=== PATIENT | male | born 1940 | race Native Hawaiian/Other Pacific Islander ===

== ENCOUNTER 2017-09-14 07:53 | Day surgery (SDC) | payer OTHER ==
[~2017-09-14 07:53] MED LIST: ALPHAGAN P0.1 % OP; ASPIRIN LOW STR81 MG PO; CARDURA4 MG PO; DUTA0.5C PO; GABA300C2 PO; GLIP10TA55 PO; HYDROCHLOROT12.5 M1 PO; INSU100I2 SC; METF100038 PO; PRAVACHOL20 MG PO; PRECOSE25 MG PO; RAMI2.5C2 PO; SINGULAIR10 MG PO
[2017-09-14 08:17] LABS: PLATELET COUNT 181 K/uL (142-355)
[2017-09-14 08:35] LABS: POTASSIUM 3.4 mmol/L (3.6-5.2); SODIUM 136 mmol/L (136-145)
== END 2017-09-14 10:50 | disposition home or self-care (01) ==
LOC: OR 07:53
PROVIDERS: Student in an Organized Health Care Education/Training Program
PROC: 0DJD8ZZ Inspection of Lower Intestinal Tract, Via Natural or Artificial Opening Endoscopic (ICD-10-PCS; principal; 2017-09-14)
DX: K57.30 Diverticulosis of large intestine without perforation or abscess without bleeding (principal); K64.8 Other hemorrhoids; Z12.11 Encounter for screening for malignant neoplasm of colon
CPT/HCPCS: 80053; 85027; J2001; J2250; J2704; J3010

== ENCOUNTER 2019-11-15 18:22 | Emergency (ER) | payer OTHER ==
[~2019-11-15] VITALS: Ht 167.6 cm; Wt 96.2 kg
[2019-11-15 19:14] LABS: PLATELET COUNT 143 K/uL (142-355)
[2019-11-15 19:23] LABS: POTASSIUM 3.2 mmol/L (3.6-5.2)
[2019-11-15 21:06] VITALS: BP 124/86; TEMP 98.3
== END 2019-11-15 21:06 | disposition home or self-care (01) ==
LOC: ED 18:22
PROVIDERS: Emergency Medicine
DX: J10.1 Influenza due to other identified influenza virus with other respiratory manifestations (principal)
CPT/HCPCS: 36415; 80053; 81000; 81002; 85027; 87502; 93005; 96360; 99284; J2405

== ENCOUNTER 2020-07-08 18:52 | Inpatient (IN) | payer OTHER ==
[~2020-07-08] VITALS: Ht 167.6 cm; Wt 93.1 kg
[2020-07-08 20:00] VITALS: BP 80/40; TEMP 98.4
[2020-07-08 21:00] VITALS: BP 73/37
[2020-07-08 21:10] LABS: POTASSIUM 5.4 mmol/L (3.6-5.2)
[2020-07-08 21:25] LABS: PLATELET COUNT 194 K/uL (142-355)
[2020-07-08 22:00] VITALS: BP 76/40
[2020-07-08 23:00] VITALS: BP 73/42
[2020-07-08 23:38] VITALS: BP 68/40; TEMP 98.4; BMI 29.2
[2020-07-09] VITALS (29 sets, daily range): BP systolic 74–118; BP diastolic 35–78; TEMP 97.7–98.9; Ht 167.6 cm; Wt 93.1 kg
[2020-07-09] MEDS ORDERED: CARDURA8 MG PO (02:44)
[2020-07-09 07:06] LABS: PLATELET COUNT 169 K/uL (142-355)
[2020-07-09] MEDS ORDERED: GABA300C2 PO (07:34)
[2020-07-09] MEDS ORDERED: FINASTERIDE5 MG PO (07:36)
[2020-07-09] MEDS ORDERED: METFORMIN ER1000 MG PO (07:36)
[2020-07-09] MEDS ORDERED: TRULICITY0.75 MG/0. SC (07:37)
[2020-07-09] MEDS ORDERED: FLONASE AL50 MCG/ACT NAS (07:41)
[2020-07-09] MEDS ORDERED: FLOVENT HF220 MCG/AC PO (07:43)
[2020-07-09 07:48] LABS: POTASSIUM 3.7 mmol/L (3.6-5.2)
[2020-07-09 13:17] LABS: POTASSIUM 3.6 mmol/L (3.6-5.2)
[2020-07-10] VITALS (23 sets, daily range): BP systolic 69–148; BP diastolic 31–81; TEMP 97.7–99
[2020-07-10 07:16] LABS: PLATELET COUNT 171 K/uL (142-355)
[2020-07-10 07:44] LABS: POTASSIUM 3.3 mmol/L (3.6-5.2)
[2020-07-10] MEDS ORDERED: METF500T PO (11:34)
[2020-07-10] MEDS ORDERED: METFTAB PO (11:35)
[2020-07-11] VITALS (18 sets, daily range): BP systolic 116–162; BP diastolic 61–95; TEMP 97.5–99.2
[2020-07-11 08:32] LABS: PLATELET COUNT 178 K/uL (142-355)
[2020-07-11 08:46] LABS: POTASSIUM 3.7 mmol/L (3.6-5.2)
[2020-07-12 02:00] VITALS: BP 148/70
[2020-07-12 04:00] VITALS: BP 143/84; TEMP 98.3
[2020-07-12 05:37] LABS: PLATELET COUNT 146 K/uL (142-355)
[2020-07-12 06:18] LABS: POTASSIUM 4.5 mmol/L (3.6-5.2)
[2020-07-12 07:00] VITALS: BP 134/79; TEMP 97.3
[2020-07-12 08:00] VITALS: BP 131/85
[2020-07-12 12:00] VITALS: BP 126/88; TEMP 97.5
== END 2020-07-12 16:10 | disposition home or self-care (01) | DRG 177 ==
LOC: MED/SURG 18:52 → ICU 07-09 00:36
PROVIDERS: ADMIT Family Medicine
DX: U07.1 COVID-19 (principal); A41.89 Other specified sepsis; N13.8 Other obstructive and reflux uropathy; N17.8 Other acute kidney failure; E46 Unspecified protein-calorie malnutrition; E11.9 Type 2 diabetes mellitus without complications; I95.89 Other hypotension; N40.1 Benign prostatic hyperplasia with lower urinary tract symptoms; G30.8 Other Alzheimer's disease; F02.80 Dementia in other diseases classified elsewhere, unspecified severity, without behavioral disturbance, psychotic disturbance, mood disturbance, and anxiety; E86.0 Dehydration; R11.2 Nausea with vomiting, unspecified; A08.8 Other specified intestinal infections; I10 Essential (primary) hypertension; F28 Other psychotic disorder not due to a substance or known physiological condition; D64.89 Other specified anemias
CPT/HCPCS: 36415; 36600; 80048; 80053; 81000; 82150; 82728; 82805; 82947; 83605; 83690; 83735; 84100; 85027; 85379; 86140; 87040; 87635; J0456; J1100; J1200; J1630; J1650; J1815; J1885; J2060; J2765; J3475; J3480; U0003

== ENCOUNTER 2020-07-18 09:10 | Inpatient (IN) | payer OTHER ==
[~2020-07-18] VITALS: Ht 167.6 cm; Wt 95.5 kg
[~2020-07-18 09:10] MED LIST changes: +CARDURA8 MG PO; +FINASTERIDE5 MG PO; +FLONASE AL50 MCG/ACT NAS; +FLOVENT HF220 MCG/AC PO; +METF500T PO; +METFORMIN ER1000 MG PO; +METFTAB PO; +TRULICITY0.75 MG/0. SC
[2020-07-18 10:08] LABS: PLATELET COUNT 155 K/uL (142-355)
[2020-07-18 10:28] LABS: POTASSIUM 6.2 mmol/L (3.6-5.2)
[2020-07-18 12:18] VITALS: BP 68/34; TEMP 97.9; Ht 167.6 cm; Wt 95.5 kg
[2020-07-18 16:00] VITALS: BP 83/43; TEMP 97.9
[2020-07-18 20:00] VITALS: BP 132/73; TEMP 97.1
[2020-07-19] VITALS: BP 100/46; TEMP 97.7
[2020-07-19 04:03] VITALS: BP 100/78; BP 86/48; TEMP 98.1
[2020-07-19 04:35] LABS: PLATELET COUNT 188 K/uL (142-355)
[2020-07-19 04:52] LABS: POTASSIUM 3.9 mmol/L (3.6-5.2)
[2020-07-19 08:00] VITALS: BP 106/48; TEMP 98
[2020-07-19 12:00] VITALS: BP 160/92; TEMP 97.7
[2020-07-19 16:00] VITALS: BP 90/46; TEMP 97.7
[2020-07-19 20:11] VITALS: BP 111/57; TEMP 97.7
[2020-07-20] VITALS (7 sets, daily range): BP systolic 92–150; BP diastolic 54–82; TEMP 97.7–98.6
[2020-07-20 06:25] LABS: PLATELET COUNT 226 K/uL (142-355)
[2020-07-20 06:47] LABS: POTASSIUM 3.7 mmol/L (3.6-5.2)
[2020-07-21 04:00] VITALS: BP 152/88; TEMP 98.1
[2020-07-21 06:23] LABS: PLATELET COUNT 186 K/uL (142-355)
[2020-07-21 06:46] LABS: POTASSIUM 4.1 mmol/L (3.6-5.2)
[2020-07-21 08:00] VITALS: BP 168/89; TEMP 98.1
[2020-07-21 12:00] VITALS: BP 142/75; TEMP 97.7
[2020-07-21 16:00] VITALS: BP 151/84; TEMP 97.9
[2020-07-21 20:00] VITALS: BP 152/89; TEMP 97.9
[2020-07-22] VITALS: BP 123/73; TEMP 98.5
[2020-07-22 04:00] VITALS: BP 131/76; TEMP 98.4
[2020-07-22 05:41] LABS: PLATELET COUNT 163 K/uL (142-355)
[2020-07-22 05:57] LABS: POTASSIUM 3.7 mmol/L (3.6-5.2)
[2020-07-22 08:00] VITALS: BP 141/80; TEMP 98.1
[2020-07-22 12:00] VITALS: BP 147/73; TEMP 98
[2020-07-22 16:00] VITALS: BP 145/75; TEMP 98
[2020-07-22 20:00] VITALS: BP 165/92; TEMP 98.6
[2020-07-23 00:16] VITALS: BP 157/52; TEMP 98.3
[2020-07-23 03:59] LABS: PLATELET COUNT 164 K/uL (142-355)
[2020-07-23 04:09] VITALS: BP 137/71; TEMP 98.3
[2020-07-23 05:04] LABS: POTASSIUM 3.9 mmol/L (3.6-5.2)
[2020-07-23 08:00] VITALS: BP 189/100; TEMP 97.8
[2020-07-23 12:00] VITALS: BP 150/68; TEMP 98.4
[2020-07-23 16:00] VITALS: BP 191/111; TEMP 97.7
[2020-07-23 20:00] VITALS: BP 150/70; TEMP 98.3
[2020-07-24] VITALS: BP 136/77; TEMP 98.6
[2020-07-24 04:00] VITALS: BP 141/76; TEMP 98.8
[2020-07-24 08:00] VITALS: BP 145/80; TEMP 98.4
[2020-07-24 11:30] LABS: PLATELET COUNT 167 K/uL (142-355)
[2020-07-24 12:00] VITALS: BP 151/80; TEMP 98.8
[2020-07-24 16:00] VITALS: BP 143/91; TEMP 98.2
[2020-07-24 20:00] VITALS: BP 132/76; TEMP 98.1
[2020-07-25] VITALS: BP 151/74; TEMP 98.1
[2020-07-25 04:00] VITALS: BP 155/78; TEMP 98.5
[2020-07-25 05:47] LABS: POTASSIUM 4.1 mmol/L (3.6-5.2)
[2020-07-25 06:44] LABS: PLATELET COUNT 211 K/uL (142-355)
[2020-07-25 08:00] VITALS: BP 135/81; TEMP 98.6
[2020-07-25 12:00] VITALS: BP 146/90; TEMP 99
[2020-07-25 16:00] VITALS: BP 163/94; TEMP 99
[2020-07-25 20:00] VITALS: BP 173/96; TEMP 98.2
[2020-07-26] VITALS: BP 163/91; TEMP 98.4
[2020-07-26 04:00] VITALS: BP 158/82; TEMP 98.6
[2020-07-26 05:01] LABS: PLATELET COUNT 207 K/uL (142-355)
[2020-07-26 05:06] LABS: POTASSIUM 4.4 mmol/L (3.6-5.2)
[2020-07-26 08:00] VITALS: BP 151/83; TEMP 98.3
[2020-07-26 12:00] VITALS: BP 165/95; TEMP 97.7
[2020-07-26 16:00] VITALS: BP 173/91; TEMP 98.1
[2020-07-26 19:42] VITALS: BP 162/91; TEMP 98.3
[2020-07-27] VITALS (7 sets, daily range): BP systolic 130–170; BP diastolic 68–96; TEMP 98.3–98.8
[2020-07-27 11:52] LABS: PLATELET COUNT 85 K/uL (142-355)
[2020-07-27 12:20] LABS: POTASSIUM 4.1 mmol/L (3.6-5.2)
[2020-07-28 04:00] VITALS: BP 148/80; TEMP 98.5
[2020-07-28 08:00] VITALS: BP 147/87; TEMP 98.1
[2020-07-28 12:00] VITALS: BP 174/96; TEMP 98.2
[2020-07-28 16:00] VITALS: BP 160/90; TEMP 98.3
[2020-07-28 20:17] VITALS: BP 160/79; TEMP 98.5
[2020-07-29] VITALS: BP 166/83; TEMP 98.3
[2020-07-29 04:13] VITALS: BP 161/98; TEMP 98.6
[2020-07-29 05:23] LABS: PLATELET COUNT 220 K/uL (142-355)
[2020-07-29 08:00] VITALS: BP 160/82; TEMP 98.5
[2020-07-29 12:00] VITALS: BP 137/91; TEMP 98.1
== END 2020-07-29 13:50 | disposition home or self-care (01) | DRG 177 ==
LOC: MED/SURG 09:10
PROVIDERS: ADMIT Family Medicine
DX: U07.1 COVID-19 (principal); J18.8 Other pneumonia, unspecified organism; A41.89 Other specified sepsis; E11.10 Type 2 diabetes mellitus with ketoacidosis without coma; E87.1 Hypo-osmolality and hyponatremia; E46 Unspecified protein-calorie malnutrition; J45.901 Unspecified asthma with (acute) exacerbation; N13.8 Other obstructive and reflux uropathy; I95.89 Other hypotension; I10 Essential (primary) hypertension; J45.998 Other asthma; R53.81 Other malaise; G30.8 Other Alzheimer's disease; F02.80 Dementia in other diseases classified elsewhere, unspecified severity, without behavioral disturbance, psychotic disturbance, mood disturbance, and anxiety; D64.89 Other specified anemias; N40.1 Benign prostatic hyperplasia with lower urinary tract symptoms; N28.9 Disorder of kidney and ureter, unspecified
CPT/HCPCS: 36415; 36600; 80053; 82728; 82805; 82947; 83605; 83735; 83880; 84100; 85027; 85379; 86140; 86769; 87040; 87635; 94667; 94668; 94760; J0456; J1450; J1815; J1940; J3475; J3480; J7060; U0003

== ENCOUNTER 2020-08-18 18:08 | Emergency (ER) | payer OTHER ==
[~2020-08-18] VITALS: Ht 33 cm; Wt 0.5 kg
[2020-08-18 18:08] VITALS: BP 104/52; TEMP 97.9
[2020-08-18 19:28] LABS: PLATELET COUNT 249 K/uL (142-355)
[2020-08-18 19:29] LABS: POTASSIUM 5.2 mmol/L (3.6-5.2)
== END 2020-08-18 23:40 | disposition short-term general hospital (02) ==
LOC: ED 18:08
PROVIDERS: Emergency Medicine Emergency Medical Services
PROC: 0T9B70Z Drainage of Bladder with Drainage Device, Via Natural or Artificial Opening (ICD-10-PCS; principal; 2020-08-18)
DX: E11.10 Type 2 diabetes mellitus with ketoacidosis without coma (principal); Z79.84 Long term (current) use of oral hypoglycemic drugs; I95.89 Other hypotension
CPT/HCPCS: 36415; 36600; 51702; 80053; 81002; 82805; 82947; 82962; 83605; 83690; 84484; 85027; 85610; 85730; 87040; 93005; 96361; 96365; 96366; 96375; 96376; 99285; J0696; J1644; J1815; J2405; J3490

== ENCOUNTER 2020-09-01 20:45 | Emergency (ER) | payer OTHER ==
[~2020-09-01] VITALS: Ht 167.6 cm; Wt 70.3 kg
[2020-09-01 20:58] VITALS: TEMP 98.7
[2020-09-01 21:22] LABS: PLATELET COUNT 177 K/uL (142-355)
[2020-09-01 21:30] LABS: POTASSIUM 4.3 mmol/L (3.6-5.2); SODIUM 133 mmol/L (136-145)
[2020-09-01 21:39] LABS: PARTIAL THROMBOPLASTIN TIME 35.3 SECONDS (24.5-33.6)
[2020-09-02 00:45] VITALS: BP 99/55
== END 2020-09-02 00:45 | disposition short-term general hospital (02) ==
LOC: ED 20:45
PROVIDERS: Hospitalist
PROC: 0T9B70Z Drainage of Bladder with Drainage Device, Via Natural or Artificial Opening (ICD-10-PCS; principal; 2020-09-01)
DX: N28.89 Other specified disorders of kidney and ureter (principal); R31.9 Hematuria, unspecified
CPT/HCPCS: 36415; 51702; 80053; 80320; 81000; 82550; 83605; 83880; 84484; 85027; 85610; 85730; 87040; 87088; 93005; 96360; 96361; 96365; 96366; 99285; J0692; J1956; Q9963

== ENCOUNTER 2020-10-05 15:53 | Outpatient (CLI) | payer OTHER ==
[2020-10-05 16:08] LABS: PLATELET COUNT 195 K/uL (142-355)
== END 2020-10-05 22:25 | disposition home or self-care (01) ==
LOC: LAB 15:53
PROVIDERS: ATTEND Family Medicine
DX: E86.0 Dehydration (principal); N19 Unspecified kidney failure
CPT/HCPCS: 80053; 81000; 83735; 84100; 85027

== ENCOUNTER 2020-10-12 22:54 | Emergency (ER) | payer OTHER ==
[~2020-10-12] VITALS: Ht 167.6 cm; Wt 70.3 kg
[2020-10-12 23:55] LABS: POTASSIUM 4.5 mmol/L (3.6-5.2); SODIUM 133 mmol/L (136-145)
[2020-10-13 00:10] LABS: PLATELET COUNT 182 K/uL (142-355)
[2020-10-13 00:17] LABS: PARTIAL THROMBOPLASTIN TIME 25.6 SECONDS (24.5-33.6)
[2020-10-13 02:30] VITALS: BP 107/67; TEMP 98.1
== END 2020-10-13 02:30 | disposition short-term general hospital (02) ==
LOC: ED 22:54
PROVIDERS: Hospitalist
DX: A41.9 Sepsis, unspecified organism (principal); E86.0 Dehydration; R31.9 Hematuria, unspecified; D64.89 Other specified anemias; Z98.890 Other specified postprocedural states; R06.02 Shortness of breath; Z20.828 Contact with and (suspected) exposure to other viral communicable diseases
CPT/HCPCS: 36415; 80053; 81000; 81002; 82550; 83605; 83880; 84484; 85027; 85610; 85730; 87040; 87077; 87185; 87186; 87205; 87635; 93005; 96360; 96365; 96366; 99285; J1956; U0003

== ENCOUNTER 2020-11-07 07:28 | Day surgery (SDC) | payer OTHER ==
[~2020-11-07] VITALS: Ht 33 cm; Wt 0.5 kg
[2020-11-07 08:25] LABS: PLATELET COUNT 207 K/uL (142-355)
[2020-11-07 08:27] LABS: POTASSIUM 5.7 mmol/L (3.6-5.2)
== END 2020-11-07 11:17 | disposition home or self-care (01) ==
LOC: OR 07:28
PROVIDERS: ATTEND Student in an Organized Health Care Education/Training Program
PROC: 0DH63UZ Insertion of Feeding Device into Stomach, Percutaneous Approach (ICD-10-PCS; principal; 2020-11-07)
DX: R62.7 Adult failure to thrive (principal); E11.43 Type 2 diabetes mellitus with diabetic autonomic (poly)neuropathy; K31.84 Gastroparesis; E46 Unspecified protein-calorie malnutrition
CPT/HCPCS: 80053; 85027; J2001; J2370; J2704; J3490

== ENCOUNTER 2020-11-28 13:11 | Inpatient (IN) | payer OTHER ==
[~2020-11-28] VITALS: Ht 167.6 cm; Wt 81.9 kg
[2020-11-28 13:12] VITALS: BP 90/71; TEMP 97.4
[2020-11-28 14:06] LABS: PLATELET COUNT 252 K/uL (142-355)
[2020-11-28 14:14] LABS: POTASSIUM 5.4 mmol/L (3.6-5.2)
[2020-11-28 15:00] VITALS: BP 101/56
[2020-11-28 16:00] VITALS: BP 121/53
[2020-11-28 17:18] VITALS: BP 94/56; TEMP 97.9; Ht 167.6 cm; Wt 81.9 kg
[2020-11-28 19:46] VITALS: BP 104/65; TEMP 98.2
[2020-11-28 20:06] LABS: POTASSIUM 5.5 mmol/L (3.6-5.2)
[2020-11-28 23:47] VITALS: BP 108/41; TEMP 98
[2020-11-29 03:37] VITALS: BP 79/49; TEMP 98.6
[2020-11-29 05:19] LABS: PLATELET COUNT 237 K/uL (142-355)
[2020-11-29 05:23] LABS: POTASSIUM 5.7 mmol/L (3.6-5.2)
[2020-11-29 08:00] VITALS: BP 112/63; TEMP 98.8
[2020-11-29 12:00] VITALS: BP 129/57; TEMP 98.1
[2020-11-29 16:00] VITALS: BP 113/75; TEMP 97.8
[2020-11-29 20:00] VITALS: BP 105/56; TEMP 98.2
[2020-11-30] VITALS (7 sets, daily range): BP systolic 98–116; BP diastolic 58–70; TEMP 97.3–98.7
[2020-11-30 05:55] LABS: PLATELET COUNT 200 K/uL (142-355)
[2020-11-30 06:27] LABS: POTASSIUM 5.3 mmol/L (3.6-5.2)
[2020-12-01 04:00] VITALS: BP 90/48; TEMP 98.1
[2020-12-01 05:23] LABS: PLATELET COUNT 190 K/uL (142-355)
[2020-12-01 05:41] LABS: POTASSIUM 4.1 mmol/L (3.6-5.2)
[2020-12-01 08:00] VITALS: BP 116/63; TEMP 98.3
[2020-12-01 12:00] VITALS: BP 110/62; TEMP 97.8
[2020-12-01 16:00] VITALS: BP 108/54; TEMP 98.5
[2020-12-01 20:00] VITALS: BP 99/71; TEMP 98.2
[2020-12-02 00:02] VITALS: BP 126/65; TEMP 97.9
[2020-12-02 04:14] VITALS: BP 125/73; TEMP 97.7
[2020-12-02 06:52] LABS: PLATELET COUNT 176 K/uL (142-355)
[2020-12-02 07:18] LABS: POTASSIUM 4.6 mmol/L (3.6-5.2)
[2020-12-02 08:00] VITALS: BP 98/65; TEMP 97.8
[2020-12-02 12:00] VITALS: BP 144/61; TEMP 98.7
== END 2020-12-02 16:55 | disposition home health service (06) | DRG 871 ==
LOC: ED 13:11 → MED/SURG 15:21
PROVIDERS: Emergency Medicine Emergency Medical Services; ADMIT Family Medicine; ATTEND Family Medicine
DX: A41.89 Other specified sepsis (principal); R65.21 Severe sepsis with septic shock; N39.0 Urinary tract infection, site not specified; E87.1 Hypo-osmolality and hyponatremia; N13.8 Other obstructive and reflux uropathy; N18.4 Chronic kidney disease, stage 4 (severe); E46 Unspecified protein-calorie malnutrition; N17.8 Other acute kidney failure; E86.0 Dehydration; R33.8 Other retention of urine; N40.1 Benign prostatic hyperplasia with lower urinary tract symptoms; F03.90 Unspecified dementia, unspecified severity, without behavioral disturbance, psychotic disturbance, mood disturbance, and anxiety; D53.9 Nutritional anemia, unspecified; R00.1 Bradycardia, unspecified; I95.89 Other hypotension; E11.22 Type 2 diabetes mellitus with diabetic chronic kidney disease; I12.9 Hypertensive chronic kidney disease with stage 1 through stage 4 chronic kidney disease, or unspecified chronic kidney disease; E87.5 Hyperkalemia
CPT/HCPCS: 36415; 51702; 80048; 80053; 81000; 83605; 83690; 83735; 83880; 84100; 85027; 86140; 87040; 87077; 87088; 87185; 87205; 87635; 93005; 96360; 96361; 96365; 96366; 99284; J0696; J0885; J1815; J1956; J3370; J3490; J7060; U0003

== ENCOUNTER 2020-12-13 11:35 | Observation (INO) | payer OTHER ==
[~2020-12-13] VITALS: Ht 167.6 cm; Wt 84.2 kg
[2020-12-13] VITALS (9 sets, daily range): BP systolic 99–126; BP diastolic 50–72; TEMP 97.4–98.7; Ht 167.6 cm; Wt 84.2 kg
[2020-12-13 13:11] LABS: PLATELET COUNT 247 K/uL (142-355)
[2020-12-13 13:20] LABS: POTASSIUM 3.8 mmol/L (3.6-5.2); SODIUM 132 mmol/L (136-145)
[2020-12-14] VITALS: BP 145/61; TEMP 97.8
[2020-12-14 04:00] VITALS: BP 146/79; TEMP 98.6
[2020-12-14 05:21] LABS: PLATELET COUNT 210 K/uL (142-355)
[2020-12-14 08:00] VITALS: BP 149/107; TEMP 98.2
[2020-12-14 12:00] VITALS: BP 163/71; TEMP 97.8
== END 2020-12-14 15:00 | disposition home or self-care (01) ==
LOC: ED 11:35 → MED/SURG 16:00
PROVIDERS: ADMIT Family Medicine; ATTEND Family Medicine
DX: J18.8 Other pneumonia, unspecified organism (principal); F03.90 Unspecified dementia, unspecified severity, without behavioral disturbance, psychotic disturbance, mood disturbance, and anxiety; N39.0 Urinary tract infection, site not specified; E86.0 Dehydration; E87.1 Hypo-osmolality and hyponatremia; N40.0 Benign prostatic hyperplasia without lower urinary tract symptoms
CPT/HCPCS: 36415; 80053; 81000; 82948; 83605; 83880; 84484; 85027; 86140; 87040; 87077; 87088; 87635; 93005; 94640; 94664; 94760; 96365; 96366; 96367; 96372; 99220; 99284; G0378; J0456; J1815; J1956; U0003

== ENCOUNTER 2020-12-29 14:42 | Emergency (ER) | payer OTHER ==
[~2020-12-29] VITALS: Ht 167.6 cm; Wt 83.9 kg
[2020-12-29 15:26] LABS: PLATELET COUNT 257 K/uL (142-355)
[2020-12-29 15:44] LABS: POTASSIUM 4.2 mmol/L (3.6-5.2); SODIUM 131 mmol/L (136-145)
[2020-12-29 21:45] VITALS: BP 97/55; TEMP 97.4
== END 2020-12-29 21:45 | disposition home or self-care (01) ==
LOC: ED 14:42
PROVIDERS: Hospitalist
PROC: 0T2BX0Z Change Drainage Device in Bladder, External Approach (ICD-10-PCS; principal; 2020-12-29)
DX: N39.0 Urinary tract infection, site not specified (principal); E11.65 Type 2 diabetes mellitus with hyperglycemia; Z79.4 Long term (current) use of insulin; R10.84 Generalized abdominal pain
CPT/HCPCS: 36415; 51702; 80053; 81000; 82550; 83880; 84484; 85027; 85610; 85730; 87088; 93005; 96361; 96365; 96375; 96376; 99284; J1815; J1956